=== PATIENT | female | born 1965 ===

== ENCOUNTER 2016-07-26 18:38 | Emergency (ER) | payer BC ==
[2016-07-26 18:58] VITALS: BP 149/88
--- NOTE | 2016-07-26 19:04 | UC ---
Respiratory Complaint HPI - HPI Summary HPI Summary: 50 yo female with f/c, sinus pressure, cough, sore throat x 5 days myalgias no CP or SOB - History of Current Complaint Chief Complaint: UCGeneralIllness Stated Complaint: SORE THROAT/BODY ACHES Time Seen by Provider: 07/26/16 18:59 Hx Obtained From: Patient Hx Last Menstrual Period: on Depo Provera Onset/Duration: Gradual Onset, Lasting Days Timing: Constant Severity Initially: Moderate Severity Currently: Moderate Pain Intensity: 4 Pain Scale Used: 0-10 Numeric Character: Cough: Nonproductive Associated Signs And Symptoms: Positive: Fever, Chills, Nasal Congestion, Hoarseness, Sinus Discomfort - Allergies/Home Medications Allergies/Adverse Reactions: Allergies Allergy/AdvReac Type Severity Reaction Status Date / Time No Known Allergies Allergy Verified 07/26/16 18:58 Home Medications: Home Medications Jxrteat-Fgoevvgjfuwct-Hbinzzws [Excedrin Migraine] 2 tab PO DAILY PRN 07/26/16 [ History Confirmed 07/26/16] SUMAtriptan TAB* [Imitrex TAB*] 25 mg PO SEE INSTRUCTIONS PRN 07/26/16 [History Confirmed 07/26/16] PMH/Surg Hx/FS Hx/Imm Hx Previously Healthy: Yes - Surgical History Surgical History: Yes Surgery Procedure, Year, and Place: appendectomy - Family History Known Family History: Positive: Hypertension - Social History Alcohol Use: None Substance Use Type: None Smoking Status (MU): Never Smoked Tobacco - Immunization History Most Recent Influenza Vaccination: none Review of Systems Constitutional: Fever, Chills, Fatigue Skin: Negative Eyes: Negative ENT: Dental Pain, Nasal Discharge Respiratory: Cough Cardiovascular: Negative Gastrointestinal: Negative Genitourinary: Negative Motor: Negative Neurovascular: Negative Musculoskeletal: Myalgia Neurological: Negative Psychological: Negative All Other Systems Reviewed And Are Negative: Yes Physical Exam Triage Information Reviewed: Yes Appearance: Well-Appearing, No Pain Distress, Well-Nourished Vital Signs: Initial Vital Signs Temp 99.1 F 07/26/16 18:51 Pulse 95 07/26/16 18:51 Resp 17 07/26/16 18:51 BP 149/88 07/26/16 18:51 Pulse Ox 100 07/26/16 18:51 Vital Signs Reviewed: Yes Eyes: Positive: Conjunctiva Clear ENT: Positive: Hearing grossly normal, Nasal congestion, Nasal drainage, Other: - bilat max sinus tenderness. Negative: Trismus, Muffled/hoarse voice Neck exam: Normal Neck: Positive: Supple, Nontender, No Lymphadenopathy Respiratory: Positive: Lungs clear, Normal breath sounds, No respiratory distress, No accessory muscle use Cardiovascular: Positive: RRR, No Murmur Musculoskeletal: Positive: ROM Intact, No Edema Neurological: Positive: Alert Psychological Exam: Normal Skin Exam: Normal UC Diagnostic Evaluation - Laboratory O2 Sat by Pulse Oximetry: 100 - normal/not hypoxic Respiratory Course/Dx - Course Course Of Treatment: rapid flu (-) - Differential Dx/Diagnosis Provider Diagnoses: acute sinusitis Discharge - Discharge Plan Condition: Stable Disposition: HOME Prescriptions: Cefuroxime Axetil [Ceftin 250 MG] 250 mg PO BID #20 tab Patient Education Materials: Sinusitis (ED) Forms: *Work Release Referrals: Belkis Huerta MD [Primary Care Provider] - If Needed Additional Instructions: recheck in about 4 days if not better
== END 2016-07-26 19:48 | disposition home or self-care (01) ==
LOC: UCCORT 18:38
DX: J01.90 Acute sinusitis, unspecified (principal)
CPT/HCPCS: 87502; 99202; G0463